=== PATIENT | female | born 2005 ===

== ENCOUNTER 2025-02-22 01:30 | Outpatient (CLI) | payer OTHER, SELFPAY ==
[2025-02-22 16:06] LABS: TSH 0.15 uIU/mL (0.55-4.78); Vitamin D 25 Total 58 ng/mL (20-100)
[2025-02-23 09:41] LABS: Lab Add On Test DONE
== END 2025-02-22 01:31 | disposition home or self-care (01) ==
LOC: LBO 01:30
PROVIDERS: Advanced Practice Midwife; Visit Provider Advanced Practice Midwife
DX: Z34.91 Encounter for supervision of normal pregnancy, unspecified, first trimester (principal); Z13.29 Encounter for screening for other suspected endocrine disorder; R79.89 Other specified abnormal findings of blood chemistry
CPT/HCPCS: 36415; 82306; 86850; 86900; 86901; 84439; 84443